=== PATIENT | female | born 1975 | race African-American/Black ===

== ENCOUNTER 2017-06-03 10:49 | Emergency (ER) | payer MEDICAID ==
[~2017-06-03] VITALS: Ht 167.6 cm; Wt 87.0 kg
[~2017-06-03 10:49] MED LIST: ALBUTEROL
[2017-06-03] MEDS ORDERED: SODIUM CHLORIDE 0.9% 500 ML IV ONE (13:15)
[2017-06-03 14:25] LABS: BASOPHILS % 0.4 % (0.0-2.0); EOSINOPHILS % 0.4 % (0.0-5.0); HEMATOCRIT. 36.1 % (36.0-48.0); LYMPHOCYTES % 24.3 % (20.0-50.0); MEAN CORPUSCULAR HEMOGLOBIN 27.5 pg (28.0-32.0); MEAN CORPUSCULAR VOLUME 82.7 fL (81.0-99.0); MEAN PLATELET VOLUME 9.7 fl (7.4-10.4); MONOCYTES % 6.8 % (2.0-8.0); NEUTROPHILS % 68.1 % (40.0-76.0); PLATELET 166 x1000/uL (130-400); RED BLOOD CELL COUNT 4.37 mill/uL (4.2-5.4); RED CELL DISTRIBUTION WIDTH 16.3 % (11.6-14.6)
[2017-06-03 14:32] LABS: PROTHROMBIN TIME 10.7 sec (9.4-11.6)
[2017-06-03 14:40] LABS: CARBON DIOXIDE 25 mEq/L (21-32); CHLORIDE 104 mEq/L (98-107)
[2017-06-03 15:09] LABS: CLARITY URINE CLEAR (CLEAR); COLOR URINE YELLOW (YELLOW); GLUCOSE URINE NEGATIVE (NEGATIVE); KETONES URINE NEGATIVE (NEGATIVE); LEUKOCYTE ESTERASE URINE NEGATIVE (NEGATIVE); NITRITE URINE NEGATIVE (NEGATIVE); OCCULT BLOOD URINE NEGATIVE (NEGATIVE); PROTEIN URINE NEGATIVE (NEGATIVE); SPECIFIC GRAVITY URINE 1.026 (1.005-1.030)
[2017-06-03 15:23] LABS: HEPATITIS B SURFACE ANTIGEN NEGATIVE
[2017-06-03 15:26] LABS: *AMPHETAMINES SCREEN URINE NEGATIVE (NEGATIVE); *BARBITURATES SCREEN URINE NEGATIVE (NEGATIVE); *BENZODIAZEPINES SCREEN URINE NEGATIVE (NEGATIVE); *COCAINE SCREEN URINE NEGATIVE (NEGATIVE); CANNABINOID URINE SCREEN NEGATIVE (NEGATIVE); METHADONE URINE SCREEN NEGATIVE (NEGATIVE); OPIATES URINE SCREEN NEGATIVE (NEGATIVE); PHENCYCLIDINE URINE SCREEN NEGATIVE (NEGATIVE)
[2017-06-03 15:52] LABS: HEPATITIS B CORE AB IGM NEGATIVE
[2017-06-03 15:53] LABS: HEPATITIS A AB IGM NEGATIVE (NEGATIVE)
[2017-06-03 18:18] VITALS: BP 156/56
== END 2017-06-03 18:22 | disposition home or self-care (01) ==
LOC: ER 10:49
DX: N20.0 Calculus of kidney (principal); E86.0 Dehydration; R11.2 Nausea with vomiting, unspecified; J45.909 Unspecified asthma, uncomplicated
CPT/HCPCS: 36415; 71010; 74176; 80053; 80305; 81003; 81025; 83036; 83605; 83690; 85025; 85610; 85651; 87040; 87086; 93005; 99285; J7030; J7040; Z7610; 86705; 86709; 86803; 87340

== ENCOUNTER 2020-11-30 16:00 | Emergency (ER) | payer MEDICAID ==
[~2020-11-30] VITALS: Ht 165.1 cm; Wt 88.0 kg
[2020-11-30 18:36] LABS: CLARITY URINE CLEAR (CLEAR); COLOR URINE YELLOW (YELLOW); KETONES URINE TRACE (NEGATIVE); LEUKOCYTE ESTERASE URINE NEGATIVE (NEGATIVE); NITRITE URINE NEGATIVE (NEGATIVE); OCCULT BLOOD URINE NEGATIVE (NEGATIVE); PROTEIN URINE NEGATIVE (NEGATIVE); SPECIFIC GRAVITY URINE 1.029 (1.005-1.030); UROBILINOGEN URINE 0.2 E.U./dL (0.2-1.0)
[2020-11-30] MEDS ORDERED: IBUPROFEN 800MG TABLET PO ONE (19:00)
[2020-11-30] MEDS ORDERED: DIAZEPAM 5 MG TABLET PO ONE (19:00)
[2020-11-30] MEDS ORDERED: METH-773 MT (20:02)
[2020-11-30] MEDS ORDERED: TRAM50TA3 MT (20:02)
[2020-11-30] MEDS ORDERED: IBUP-2030 MT (20:02)
[2020-11-30 20:36] VITALS: BP 142/82
== END 2020-11-30 20:37 | disposition home or self-care (01) ==
LOC: ER 16:00
DX: M54.5 Low back pain (principal); R10.9 Unspecified abdominal pain; J45.909 Unspecified asthma, uncomplicated; Z98.890 Other specified postprocedural states; Z79.899 Other long term (current) drug therapy; Z88.2 Allergy status to sulfonamides
CPT/HCPCS: 74176; 81003; 81025; 99284

== ENCOUNTER 2022-03-30 10:37 | Emergency (ER) | payer MEDICAID ==
[~2022-03-30] VITALS: Ht 165.1 cm; Wt 83.5 kg
[~2022-03-30 10:37] MED LIST changes: +IBUP-2030 MT; +METH-773 MT; +TRAM50TA3 MT
[2022-03-30 10:39] VITALS: BP 131/84
[2022-03-30] MEDS ORDERED: METHYLPREDNISOLONE SOD SUCC 125 MG/2 ML VIAL IM STA (11:42)
[2022-03-30] MEDS ORDERED: IBUPROFEN 600MG TABLET PO STA (11:42)
[2022-03-30 12:21] LABS: CLARITY URINE CLEAR (CLEAR); COLOR URINE YELLOW (YELLOW); KETONES URINE 1+ (NEGATIVE); LEUKOCYTE ESTERASE URINE NEGATIVE (NEGATIVE); NITRITE URINE NEGATIVE (NEGATIVE); OCCULT BLOOD URINE NEGATIVE (NEGATIVE); PROTEIN URINE 1+ (NEGATIVE); SPECIFIC GRAVITY URINE 1.035 (1.005-1.030)
[2022-03-30] MEDS ORDERED: P20 PO (14:07)
[2022-03-30] MEDS ORDERED: DEXTL PO (14:07)
[2022-03-30] MEDS ORDERED: ALBU18HF2 IH (14:07)
[2022-03-30] MEDS ORDERED: NAPR-681 PO (14:07)
== END 2022-03-30 14:23 | disposition home or self-care (01) ==
LOC: ER 10:37
DX: J20.9 Acute bronchitis, unspecified (principal); I49.9 Cardiac arrhythmia, unspecified; Z20.822 Contact with and (suspected) exposure to COVID-19; Z88.2 Allergy status to sulfonamides
CPT/HCPCS: 71045; 81003; 81025; 87426; 93005; 96372; 99285; C9803; J2930

== ENCOUNTER 2023-01-24 22:47 | Emergency (ER) | payer MEDICAID ==
[~2023-01-24] VITALS: Ht 165.1 cm; Wt 89.5 kg
[~2023-01-24 22:47] MED LIST changes: +ALBU18HF2 IH; +DEXTL PO; +NAPR-681 PO; +P20 PO
[2023-01-24 22:54] VITALS: BP 149/93
[2023-01-26] MEDS ORDERED: TOPUD PO (10:36)
== END 2023-01-25 01:00 | disposition left against medical advice (07) ==
LOC: ER 22:47
DX: Z53.21 Procedure and treatment not carried out due to patient leaving prior to being seen by health care provider (principal)
CPT/HCPCS: 99281

== ENCOUNTER 2023-01-26 08:20 | Emergency (ER) | payer MEDICAID ==
[~2023-01-26] VITALS: Ht 165.1 cm; Wt 89.5 kg
[2023-01-26] MEDS ORDERED: TRAMADOL 50MG TABLET PO NR (09:15)
[2023-01-26] MEDS ORDERED: IPRATROPIUM/ALBUTEROL 0.5-3(2.5)MG/3ML NEB HHN PRN (09:15)
[2023-01-26 09:57] LABS: HCG SCREEN NEGATIVE
[2023-01-26] MEDS ORDERED: TOPUD PO (10:36)
[2023-01-26 13:29] VITALS: BP 151/87
== END 2023-01-26 13:33 | disposition home or self-care (01) ==
LOC: ER 08:20
DX: G43.909 Migraine, unspecified, not intractable, without status migrainosus (principal); M25.552 Pain in left hip; J45.909 Unspecified asthma, uncomplicated; R06.02 Shortness of breath
CPT/HCPCS: 72170; 81025; 84703; 94640; 99284; Z7610